=== PATIENT | female | born 1950 | race Caucasian/White ===

== ENCOUNTER 2019-11-26 10:05 | Emergency (ER) | payer OTHER, MEDICAID ==
[~2019-11-26] VITALS: Ht 162.6 cm; Wt 77.1 kg
[2019-11-26 10:06] VITALS: Ht 162.6 cm; Wt 77.1 kg
[2019-11-26 10:59] LABS: RED CELL DISTRIBUTION WIDTH 13.2 % (11.5-14.5)
[2019-11-26 11:19] LABS: ALBUMIN 3.3 g/dL (3.4-5.0); BILIRUBIN TOTAL 0.34 mg/dL (0.20-1.00); CALCIUM 8.5 mg/dL (8.5-10.1); CARBON DIOXIDE 26.8 mmol/L (21-32); CHLORIDE SERUM 92 mmol/L (98-107); CREATININE SERUM 0.6 mg/dL (0.6-1.0); GFR1 > 60 mL/min; GLUCOSE SERUM 105 mg/dL (74-106); POTASSIUM SERUM 3.7 mmol/L (3.5-5.1); SODIUM SERUM 129 mmol/L (136-145); TOTAL PROTEIN, SERUM 6.5 g/dL (6.4-8.2)
[2019-11-26 11:20] LABS: ALKALINE PHOSPHATASE 106 U/L (46-116); ALT/SGPT 18 U/L (14-59); AST/SGOT 9 U/L (15-37)
[2019-11-26 11:27] LABS: PLATELET COUNT 511 x10^3mcL (130-400)
[2019-11-26 13:33] VITALS: BP 163/82
== END 2019-11-26 13:33 | disposition home or self-care (01) ==
LOC: ED 10:05
PROVIDERS: Emergency Medicine
DX: R07.89 Other chest pain (principal); J44.9 Chronic obstructive pulmonary disease, unspecified; I25.2 Old myocardial infarction; Z88.6 Allergy status to analgesic agent; Z88.1 Allergy status to other antibiotic agents
CPT/HCPCS: 83880; 85378; J2270; J3010; Q0092